=== PATIENT | female | born 1995 | race Caucasian/White ===

== ENCOUNTER 2016-11-24 17:33 | Emergency (ER) | payer SELFPAY ==
[2016-11-24 17:56] LABS: Basophils % (Auto) 0.5 % (0.0-1.8); Eosinophils % (Auto) 3.9 % (0.0-4.3); Hematocrit 39.9 % (30.3-42.9); Hemoglobin 13.5 gm/dl (10.1-14.3); Mean Corpuscular HGB Conc 34 % (30-34); Mean Corpuscular Hemoglobin 29 pg (28-32); Mean Corpuscular Volume 86 fl (79-97); Platelet Count 309 K/mm3 (140-440); Red Blood Count 4.65 M/mm3 (3.65-5.03); White Blood Count 12.8 K/mm3 (4.5-11.0)
[2016-11-24 18:33] LABS: Bacteria,Urine 1+ /HPF (Negative); Bilirubin,Urine NEG (Negative); Blood,Urine LG (Negative); Ketones,Urine NEG (Negative); Leukocyte Esterase,Urine SM (Negative); Nitrite,Urine NEG (Negative); Protein,Urine <15 mg/dL mg/dL (Negative); Urobilinogen,Urine < 2.0 mg/dL (<2.0)
--- NOTE | 2016-11-24 22:03 | Emergency Department Report ---
ED Female HPI - General Chief complaint: Vaginal Bleeding Stated complaint: VAGINAL BLEEDING Time Seen by Provider: 11/24/16 22:02 Source: patient Mode of arrival: Ambulatory - History of Present Illness Initial comments: This is a 23-year-old female, the patient reports that she is G2. She thinks her last period was 09/30/2016. She presents to the ER with intermittent vaginal bleeding which started on Friday. No headache, neck pain, chest pain, irritative or obstructive urinary symptoms, no right lower quadrant pain, no fevers or sore throat. She cannot describe exacerbating or relieving factors for the pain, and reports that it does not radiate anywhere. MD Complaint: vaginal bleeding, pelvic pain -: Gradual Location: suprapubic Improves with: none Worsens with: none Are you Now?: Yes Associated Symptoms: vaginal bleeding, abdominal pain - Related Data Sexually active: Yes Allergies Allergy/AdvReac Type Severity Reaction Status Date / Time No Known Allergies Allergy Verified 11/24/16 17:44 ED Review of Systems ROS: Stated complaint: VAGINAL BLEEDING Other details as noted in HPI Constitutional: denies: malaise Eyes: denies: vision change ENT: denies: epistaxis Respiratory: denies: cough Cardiovascular: denies: chest pain Genitourinary: abnormal menses Musculoskeletal: denies: back pain Skin: denies: lesions Neurological: denies: weakness Psychiatric: anxiety ED Past Medical Hx - Past Medical History Previous Medical History?: No - Surgical History Past Surgical History?: Yes Additional Surgical History: left leg - Social History Smoking Status: Never Smoker Substance Use Type: None ED Physical Exam - General General appearance: alert, in no apparent distress - Head Head exam: Present: atraumatic, normocephalic - Eye Eye exam: Present: normal appearance, EOMI. Absent: nystagmus - ENT ENT exam: Present: normal exam, normal orophraynx, mucous membranes moist, normal external ear exam - Neck Neck exam: Present: normal inspection, full ROM. Absent: tenderness, meningismus - Respiratory Respiratory exam: Present: normal lung sounds bilaterally. Absent: respiratory distress, wheezes, rales, rhonchi, stridor, chest wall tenderness, accessory muscle use, decreased breath sounds, prolonged expiratory - Cardiovascular Cardiovascular Exam: Present: normal rhythm, tachycardia, normal heart sounds. Absent: systolic murmur, diastolic murmur, rubs, gallop - GI/Abdominal GI/Abdominal exam: Present: soft, normal bowel sounds. Absent: distended, tenderness, guarding, rebound, rigid, pulsatile mass - External exam: Present: normal external exam Speculum exam: Present: normal speculum exam, vaginal bleeding Bi-manual exam: Present: normal bi-manual exam, other (escorted by SERGIO pedraza). Absent: cervical motion tendernes, adnexal tenderness, adnexal mass - Extremities Exam Extremities exam: Present: normal inspection, full ROM, normal capillary refill. Absent: tenderness, pedal edema, joint swelling, calf tenderness - Back Exam Back exam: Present: normal inspection, full ROM. Absent: tenderness, CVA tenderness (R), CVA tenderness (L), muscle spasm, paraspinal tenderness, vertebral tenderness - Neurological Exam Neurological exam: Present: alert, normal gait, other (Extraocular movements intact. Tongue midline. No facial droop. Facial sensation intact to light touch in the V1, V2, V3 distribution bilaterally. 5 and 5 strength in 4 extremities.. Sensation is intact to light touch in 4 extremities.). Absent: motor sensory deficit - Psychiatric Psychiatric exam: Present: normal affect, anxious - Skin Skin exam: Present: warm, dry, intact, normal color. Absent: rash ED Course Vital Signs 11/24/16 11/25/16 17:38 00:23 Temperature 99 F 98.4 F Pulse Rate 105 H 88 Respiratory 16 20 Rate Blood Pressure 125/80 Blood Pressure 106/65 [Right] O2 Sat by Pulse 99 99 Oximetry - Reevaluation(s) Reevaluation #1: 11/25/16 00:24 Patient is reliable, articulated understanding to discharge instructions, family and friends also present, and they verbalized understanding as well. - Consultations Consultation #1: 11/25/16 00:29 Case discussed with gynecology, Dr. Chowdary, patient's laboratory studies, ultrasound and physical exam were discussed, and she is in agreement with plan. ED Medical Decision Making - Lab Data Result diagrams: 11/24/16 17:46 Vital Signs 11/24/16 17:38 Temperature 99 F Pulse Rate 105 H Respiratory 16 Rate Blood Pressure 125/80 O2 Sat by Pulse 99 Oximetry Laboratory Results - last 72 hr 11/24/16 11/24/16 11/24/16 17:46 17:46 17:49 WBC 12.8 H RBC 4.65 Hgb 13.5 Hct 39.9 MCV 86 MCH 29 MCHC 34 RDW 14.0 Plt Count 309 Lymph % (Auto) 21.8 [place] % (Auto) 7.4 H Eos % (Auto) 3.9 Baso % (Auto) 0.5 Lymph # 2.8 [place] # 0.9 H Eos # 0.5 H Baso # 0.1 Seg Neutrophils % 66.4 Seg Neutrophils # 8.5 H HCG, Quant 368.0 H Urine Color Urine Turbidity Urine pH Ur Specific [place] Urine Protein Urine Glucose (UA) Urine Ketones Urine Blood Urine Nitrite Urine Bilirubin Urine Urobilinogen Ur Leukocyte Esterase Urine WBC (Auto) Urine RBC (Auto) U Epithel Cells (Auto) Urine Bacteria (Auto) Blood Type A POSITIVE Antibody Screen Negative 11/24/16 18:03 WBC RBC Hgb Hct MCV MCH MCHC RDW Plt Count Lymph % (Auto) [place] % (Auto) Eos % (Auto) Baso % (Auto) Lymph # [place] # Eos # Baso # Seg Neutrophils % Seg Neutrophils # HCG, Quant Urine Color Red Urine Turbidity Clear Urine pH 7.0 Ur Specific [place] 1.004 Urine Protein <15 mg/dl Urine Glucose (UA) Neg Urine Ketones Neg Urine Blood Lg Urine Nitrite Neg Urine Bilirubin Neg Urine Urobilinogen < 2.0 Ur Leukocyte Esterase Sm Urine WBC (Auto) 3.0 Urine RBC (Auto) 3.0 U Epithel Cells (Auto) 3.0 Urine Bacteria (Auto) 1+ Blood Type Antibody Screen Lab Results 11/24/16 11/24/16 11/24/16 Range/Units 17:46 17:46 17:49 WBC 12.8 H (4.5-11.0) K/mm3 RBC 4.65 (3.65-5.03) M/mm3 Hgb 13.5 (10.1-14.3) gm/dl Hct 39.9 (30.3-42.9) % MCV 86 (79-97) fl MCH 29 (28-32) pg MCHC 34 (30-34) % RDW 14.0 (13.2-15.2) % Plt Count 309 (140-440) K/mm3 Lymph % (Auto) 21.8 (13.4-35.0) % [place] % (Auto) 7.4 H (0.0-7.3) % Eos % (Auto) 3.9 (0.0-4.3) % Baso % (Auto) 0.5 (0.0-1.8) % Lymph # 2.8 (1.2-5.4) K/mm3 [place] # 0.9 H (0.0-0.8) K/mm3 Eos # 0.5 H (0.0-0.4) K/mm3 Baso # 0.1 (0.0-0.1) K/mm3 Seg Neutrophils % 66.4 (40.0-70.0) % Seg Neutrophils # 8.5 H (1.8-7.7) K/mm3 HCG, Quant 368.0 H (0-4) mIU/mL Urine Color (Yellow) Urine Turbidity (Clear) Urine pH (5.0-7.0) Ur Specific [place] (1.003-1.030) Urine Protein (Negative) mg/dL Urine Glucose (UA) (Negative) mg/dL Urine Ketones (Negative) mg/dL Urine Blood (Negative) Urine Nitrite (Negative) Urine Bilirubin (Negative) Urine Urobilinogen (<2.0) mg/dL Ur Leukocyte Esterase (Negative) Urine WBC (Auto) (0.0-6.0) /HPF Urine RBC (Auto) (0.0-6.0) /HPF U Epithel Cells (Auto) (0-13.0) /HPF Urine Bacteria (Auto) (Negative) /HPF Blood Type A POSITIVE Antibody Screen Negative 11/24/16 Range/Units 18:03 WBC (4.5-11.0) K/mm3 RBC (3.65-5.03) M/mm3 Hgb (10.1-14.3) gm/dl Hct (30.3-42.9) % MCV (79-97) fl MCH (28-32) pg MCHC (30-34) % RDW (13.2-15.2) % Plt Count (140-440) K/mm3 Lymph % (Auto) (13.4-35.0) % [place] % (Auto) (0.0-7.3) % Eos % (Auto) (0.0-4.3) % Baso % (Auto) (0.0-1.8) % Lymph # (1.2-5.4) K/mm3 [place] # (0.0-0.8) K/mm3 Eos # (0.0-0.4) K/mm3 Baso # (0.0-0.1) K/mm3 Seg Neutrophils % (40.0-70.0) % Seg Neutrophils # (1.8-7.7) K/mm3 HCG, Quant (0-4) mIU/mL Urine Color Red (Yellow) Urine Turbidity Clear (Clear) Urine pH 7.0 (5.0-7.0) Ur Specific [place] 1.004 (1.003-1.030) Urine Protein <15 mg/dl (Negative) mg/dL Urine Glucose (UA) Neg (Negative) mg/dL Urine Ketones Neg (Negative) mg/dL Urine Blood Lg (Negative) Urine Nitrite Neg (Negative) Urine Bilirubin Neg (Negative) Urine Urobilinogen < 2.0 (<2.0) mg/dL Ur Leukocyte Esterase Sm (Negative) Urine WBC (Auto) 3.0 (0.0-6.0) /HPF Urine RBC (Auto) 3.0 (0.0-6.0) /HPF U Epithel Cells (Auto) 3.0 (0-13.0) /HPF Urine Bacteria (Auto) 1+ (Negative) /HPF Blood Type Antibody Screen - Radiology Data Radiology results: report reviewed, image reviewed Obstetrics ultrasound demonstrates no intrauterine or extrauterine gestation. No other abnormalities noted - Medical Decision Making Differential diagnosis: Miscarriage, ectopic Assessment and plan: 21-year-old female reports that she is , quantitative hCG in the 300s, no intrauterine is noted on ultrasound, has mild bleeding at this time, what appears to be products of conception at the cervix. She is afebrile, with reassuring vital signs, her tachycardia has resolved, she is hemodynamically stable, with no abdominal tenderness, rebound or guarding, no gynecologic tenderness. Most likely having an active miscarriage. Patient is instructed to return in 48 hours for repeat quantitative hCG, and possible ultrasound. Extensive discussion held with patient regarding return precautions, and the patient is given discharge instructions in Citizen Of The [place] and [place]ian. Return precautions are reviewed. Critical care attestation.: If time is entered above; I have spent that time in minutes in the direct care of this critically ill patient, excluding procedure time. ED Disposition Clinical Impression: Miscarriage Disposition: DC-01 TO HOME OR SELFCARE Is pt being admited?: No Does the pt Need Aspirin: No Condition: Stable Instructions: Spontaneous Miscarriage (ED) Additional Instructions: Rest and avoid heavy lifting. Avoid strenuous physical activity, do not have sex or intimate activity until cleared by an [facility] doctor. Return in 2 days/ 48 hours for repeat blood test (quantitative hCG) , and possible pelvic ultrasound. Not following up in the recommended timeframe may result in an undiagnosed ectopic , which can result in , disability, paralysis , loss of quality of life. Return to the ER right away with new pain, worsened pain, migration of pain, bleeding more than 2 pads soaked through and through per hour, dizziness, lightheadedness, chest pain, shortness of breath, severe abdominal pain, passing out, loss of consciousness. Descansar y evitar el levantamiento de pesas. Evite la actividad fsica extenuante, no tenga relaciones sexuales o actividad ntima hasta que lo elimine un mdico de OB / [facility] GR[facility]ER APPRENTICE. Regresar en 2 hayes / 48 horas para repetir la prueba de chin (hCG cuantitativa) y posible ultrasonido plvico. El no seguimiento en el tiempo recomendado puede resultar en un embarazo ectpico no diagnosticado, que puede resultar en muerte, discapacidad, parlisis, prdida de la calidad de shayne. Regreso al ER de inmediato con dolor nuevo, dolor agravado, migracin de dolor, sangrado de ms de 2 almohadillas empapadas a gisela s de y por la hora, mareos, aturdimiento, dolor en el pecho, dificultad para respirar, dolor abdominal intenso, desmayo, prdida de conciencia . Referrals: PRIMARY CARE, [Primary Care Provider] - 3-5 Days [facility] [Provider Group] - 3-5 Days [facility]PRENT[facility], [facility] [Provider Group] - 3-5 Days [facility] [Provider Group] - 3-5 Days
--- NOTE | 2016-11-24 23:50 | Ultrasound Report ---
FINAL REPORT PROCEDURE: US OB TRANSVAGINAL TECHNIQUE: Real-time transabdominal and transvaginal sonography of the uterus, placenta, amniotic fluid, adnexa, and fetus was performed with image documentation. Measurements were obtained to determine age/size. M-mode Doppler was used to document heartbeat. CPT 74514 and 84445 HISTORY: vag bleed COMPARISON: No prior studies are available for comparison. FINDINGS: GESTATION: None. . Yolk Sac: Absent Embryonic Cardiac Activity: Absent Gestational Sac: Absent Amniotic fluid: Absent Cervix: Normal. Right Ovary: Normal. 3.3 x 2.4 cm Left Ovary: Normal. 2.7 x 1.4 cm Uterus : Normal. 7.5 x 5.7 x 3.0 cm. The endometrium measures 1.2 cm in thickness. There is no free fluid seen. IMPRESSION: No intrauterine or extrauterine gestation seen.
--- NOTE | 2016-11-24 23:50 | Ultrasound Report ---
FINAL REPORT PROCEDURE: US OB \T\lt; = 14 WEEKS FETUS TECHNIQUE: Real-time transabdominal and transvaginal sonography of the uterus, placenta, amniotic fluid, adnexa, and fetus was performed with image documentation. Measurements were obtained to determine age/size. M-mode Doppler was used to document heartbeat. CPT 98626 and 32747 HISTORY: vag bleed COMPARISON: No prior studies are available for comparison. FINDINGS: GESTATION: None. . Yolk Sac: Absent Embryonic Cardiac Activity: Absent Gestational Sac: Absent Amniotic fluid: Absent Cervix: Normal. Right Ovary: Normal. 3.3 x 2.4 cm Left Ovary: Normal. 2.7 x 1.4 cm Uterus : Normal. 7.5 x 5.7 x 3.0 cm. The endometrium measures 1.2 cm in thickness IMPRESSION: No intrauterine or extrauterine gestation seen.
[2016-11-25 00:24] VITALS: BP 106/65
== END 2016-11-25 01:00 | disposition home or self-care (01) ==
LOC: ED 17:33
DX: O03.9 Complete or unspecified spontaneous abortion without complication (principal)
CPT/HCPCS: 36415; 76801; 76817; 81001; 84702; 85025; 86850; 86900; 86901; 99284

== ENCOUNTER 2016-11-27 12:31 | Emergency (ER) | payer SELFPAY ==
[2016-11-27 14:50] LABS: Basophils % (Auto) 0.3 % (0.0-1.8); Eosinophils % (Auto) 6.2 % (0.0-4.3); Hemoglobin 13.7 gm/dl (10.1-14.3); Mean Corpuscular HGB Conc 34 % (30-34); Mean Corpuscular Hemoglobin 30 pg (28-32); Mean Corpuscular Volume 87 fl (79-97); Platelet Count 314 K/mm3 (140-440); Red Blood Count 4.62 M/mm3 (3.65-5.03); Red Cell Distribution Width 13.9 % (13.2-15.2); White Blood Count 9.3 K/mm3 (4.5-11.0)
--- NOTE | 2016-11-27 19:18 | Emergency Department Report ---
ED Female HPI - General Chief complaint: Medical Clearance Stated complaint: POSSIBLE MISCARRAGE Time Seen by Provider: 11/27/16 19:08 Source: patient, family Mode of arrival: Ambulatory Limitations: No Limitations - History of Present Illness Initial comments: Patient here with family. She speaks very little Turkish therefore deaf interpreter utilized. She reports that she was here 11/24 2016 and she had a miscarriage and she was told to return in 3 days to have repeat ultrasound and blood work done to check her . Patient states she is not having any vaginal bleeding and just small amounts of brown bleeding from vagina vaginal area. Denies any abdominal pain. Denies any nausea or vomiting. Denies any urinary frequency or urgency. She has some urinary burning. Denies any back pain. Denies any dizziness. Previous labs from 11/24/2016 reveal serum quantitative hCG at 368.8. Her CBC was stable except her white count with mild elevation of 12.8. She had 1+ bacteria in her urine with large amount of blood suspect from miscarriage and small amount of leukocyte Estrace. Ultrasound from 11/24/2016 reveal no intrauterine or extrauterine gestation seen. Embryonic cardiac activity is absent. Right and left ovary was normal. MD Complaint: dysuria, other (patient says she has small amount ofbrown blood) Onset/Timin -: days(s) Severity scale (0 -10): 0 Last Menstrual Period: 09/30/16 EDC: 07/07/17 Associated Symptoms: vaginal bleeding (scant), dysuria. denies: vaginal discharge, abdominal pain, nausea/vomiting, fever/chills, headaches, loss of appetite, hematuria, rash, seizure, shortness of breath, syncope, weakness - Related Data Sexually active: No Previous Rx's Medication Instructions Recorded Last Taken Type Nitrofurantoin Walker/M-Cryst 100 mg PO Q12HR #14 capsule 11/27/16 Unknown Rx [Macrobid CAP] Allergies Allergy/AdvReac Type Severity Reaction Status Date / Time No Known Allergies Allergy Verified 11/27/16 20:39 ED Review of Systems ROS: Stated complaint: POSSIBLE MISCARRAGE Other details as noted in HPI Comment: All other systems reviewed and negative Constitutional: no symptoms reported Respiratory: no symptoms reported Cardiovascular: denies: chest pain, palpitations, edema, syncope Gastrointestinal: denies: abdominal pain, nausea, vomiting, diarrhea, constipation, hematemesis, melena, hematochezia Genitourinary: dysuria, other (patient will recent miscarriage in here for recheck). denies: frequency, hematuria Musculoskeletal: denies: back pain, joint swelling, arthralgia Skin: denies: rash Neurological: denies: headache ED Past Medical Hx - Past Medical History Previous Medical History?: Yes Additional medical history: Miscarriage - Surgical History Past Surgical History?: Yes Additional Surgical History: left leg - Family History Family history: no significant - Social History Smoking Status: Never Smoker Substance Use Type: None Other Social History: Lives wit family - Medications Home Medications: Home Medications Medication Instructions Recorded Confirmed Last Taken Type Nitrofurantoin Walker/M-Cryst 100 mg PO Q12HR #14 capsule 11/27/16 Unknown Rx [Macrobid CAP] ED Physical Exam - General Limitations: No Limitations General appearance: alert, in no apparent distress - Head Head exam: Present: atraumatic, normocephalic, normal inspection - Eye Eye exam: Present: normal appearance, PERRL, EOMI - ENT ENT exam: Present: normal exam, normal orophraynx, mucous membranes moist - Neck Neck exam: Present: normal inspection, full ROM. Absent: tenderness, lymphadenopathy - Respiratory Respiratory exam: Present: normal lung sounds bilaterally. Absent: respiratory distress, chest wall tenderness - Cardiovascular Cardiovascular Exam: Present: regular rate, normal rhythm, normal heart sounds. Absent: systolic murmur, diastolic murmur - GI/Abdominal GI/Abdominal exam: Present: soft, normal bowel sounds. Absent: distended, tenderness, guarding, rebound, rigid, mass, bruit - External exam: Present: normal external exam. Absent: erythema, swelling, lesions, lacerations, ecchymosis, bleeding Speculum exam: Present: vaginal bleeding (scant vaginal bleeding noted in vaginal vault involved. Brownish in color without any odor). Absent: erythema , vaginal discharge, cervical discharge, foreign body, tissue, laceration Bi-manual exam: Present: normal bi-manual exam. Absent: cervical motion tendernes, adnexal tenderness, adnexal mass, uterine enlargement, uterine tenderness - Extremities Exam Extremities exam: Present: normal inspection, full ROM, normal capillary refill. Absent: tenderness, pedal edema, joint swelling, calf tenderness - Back Exam Back exam: Present: normal inspection, full ROM. Absent: tenderness, CVA tenderness (R), CVA tenderness (L), muscle spasm, paraspinal tenderness, vertebral tenderness, rash noted - Neurological Exam Neurological exam: Present: alert, oriented X3, normal gait, reflexes normal. Absent: motor sensory deficit - Psychiatric Psychiatric exam: Present: normal affect, normal mood - Skin Skin exam: Present: warm, dry, intact, normal color. Absent: rash ED Course Vital Signs 11/27/16 11/27/16 11/27/16 14:01 18:25 19:40 Temperature 98.2 F 98 F 99.5 F Pulse Rate 82 78 92 H Respiratory 16 16 16 Rate Blood Pressure 116/77 Blood Pressure 116/77 109/82 116/73 [Left] O2 Sat by Pulse 99 99 99 Oximetry - Reevaluation(s) Reevaluation #1: 11/27/16 22:34 Patient stable throughout ED stay. ED Medical Decision Making - Lab Data Result diagrams: 11/27/16 14:15 Lab Results 11/27/16 11/27/16 Range/Units 14:15 14:15 WBC 9.3 (4.5-11.0) K/mm3 RBC 4.62 (3.65-5.03) M/mm3 Hgb 13.7 (10.1-14.3) gm/dl Hct 40.0 (30.3-42.9) % MCV 87 (79-97) fl MCH 30 (28-32) pg MCHC 34 (30-34) % RDW 13.9 (13.2-15.2) % Plt Count 314 (140-440) K/mm3 Lymph % (Auto) 26.2 (13.4-35.0) % [place] % (Auto) 6.8 (0.0-7.3) % Eos % (Auto) 6.2 H (0.0-4.3) % Baso % (Auto) 0.3 (0.0-1.8) % Lymph # 2.4 (1.2-5.4) K/mm3 [place] # 0.6 (0.0-0.8) K/mm3 Eos # 0.6 H (0.0-0.4) K/mm3 Baso # 0.0 (0.0-0.1) K/mm3 Seg Neutrophils % 60.5 (40.0-70.0) % Seg Neutrophils # 5.6 (1.8-7.7) K/mm3 HCG, Quant 71.45 H (0-4) mIU/mL - Radiology Data Radiology results: report reviewed Pelvic ultrasound reveals a normal study. No evidence of an intrauterine . The uterus has uniform myometrium. He has no uterine masses identified. The endometrial echo complex appears normal. Both ovaries appear normal in size and contains small follicles. There is no fluid in the cul-de- sac. - Medical Decision Making ED course: Patient presents to emergency room report via deaf interpreter that she had a miscarriage 3 days ago and was told to come back for repeat ultrasound and blood tests. CBC is stable. Patient quantitative hCG today is at 71.45 on on 11/24/2016 it was 368.0. Pelvic exam revealed scant brownish colored blood in vaginal vault without any odor. Her cervix is normal in color and CLOSED. She has no cervical motion tenderness and no adnexal tenderness. Ultrasound report revealed normal ultrasound with no intrauterine . Ovaries are normal. Patient is a positive from previous type and screen. Patient urine on 11/24/2016 she had small amount of leukocyte Estrace and 1+ bacteria and she is now having some urinary burning so I will place patient on Macrobid to cover acute cystitis. Her abdominal exam was normal. Diagnosis and treatment plan discharge the patient via deaf interpreter and she voiced understanding. Patient instructed that she needs to follow up with [facility] in 5 days. Be referred to OB /[facility]NA[facility] clinic on-call and I told her if she does not get in with [facility] that she will need to follow[facility] at [facility]. Discharge home with her family in stable condition Critical care attestation.: If time is entered above; I have spent that time in minutes in the direct care of this critically ill patient, excluding procedure time. ED Disposition Clinical Impression: Prior miscarriage with in first trimester, antepartum Acute cystitis Qualifiers: Hematuria presence: with hematuria Qualified Code(s): N30.01 - Acute cystitis with hematuria Disposition: TO HOME OR SELFCARE Is pt being admited?: No Does the pt Need Aspirin: No Condition: Stable Instructions: Spontaneous Miscarriage (ED), Urinary Tract Infection in Women ( ED), Dysuria (ED) Additional Instructions: Please follow up with [facility] WORKER in 5 days Please increase her fluid intake Take antibiotic for urinary tract infection Prescriptions: Nitrofurantoin Walker/M-Cryst [Macrobid CAP] 100 mg PO Q12HR #14 capsule Referrals: CHRISTIANO TORIBIO MD [Staff Physician] - 12/02/16 [facility] [Outside] - 12/02/16 Forms: Work/School Release Form(ED) Print Language: URDU
[2016-11-27 20:41] VITALS: BP 116/73
--- NOTE | 2016-11-27 22:13 | Ultrasound Report ---
FINAL REPORT PROCEDURE: Transabdominal pelvic ultrasound. TECHNIQUE: Real-time transabdominal sonography in multiple planes of pelvis was performed with image documentation. This examination was performed without Doppler. Vascular abnormalities, including ovarian torsion, will not be detectable without Doppler evaluation. CPT 44729 HISTORY: Recent miscarriage, re-evaluation. COMPARISON: Pelvic ultrasound 11/24/2016. FINDINGS: The uterus measures 8.2 centimeters x 3.2 centimeters x 6.1 centimeters. The myometrium appears uniform. The endometrial echo complex appears normal. There is no evidence of an intrauterine gestational sac. Both ovaries appear normal in size. There is no fluid in the cul-de-sac. IMPRESSION: No evidence of an intrauterine .
--- NOTE | 2016-11-27 22:15 | Ultrasound Report ---
FINAL REPORT PROCEDURE: Transvaginal pelvic ultrasound. TECHNIQUE: Real-time transvaginal sonography in multiple planes of the pelvis was performed with image documentation. This examination was performed without Doppler. Vascular abnormalities, including ovarian torsion, will not be detectable without Doppler evaluation. CPT 45267 HISTORY: Recent miscarriage, a re-evaluation. COMPARISON: Pelvic ultrasound 11/24/2016. FINDINGS: The uterus has uniform myometrium. There are no uterine masses identified. The endometrial echo complex appears normal. Both ovaries appear normal in size and contain small follicles. There is no fluid in the cul-de-sac. IMPRESSION: Normal study. No evidence of an intrauterine .
== END 2016-11-27 23:01 | disposition home or self-care (01) ==
LOC: ED 12:31
DX: N99.821 Postprocedural hemorrhage of a genitourinary system organ or structure following other procedure (principal); N30.01 Acute cystitis with hematuria
CPT/HCPCS: 36415; 76801; 76817; 84702; 85025